=== PATIENT | female | born 1985 | race Asian ===

== ENCOUNTER 2018-01-30 00:35 | Inpatient (IN) | payer MEDICAID ==
[2018-01-30] MEDS: LACTATED RINGER'S 1,000 ML IV ×7 (01:35→21:09)
[2018-01-30 02:39] LABS: RUPTURE FETAL MEMBRANES POSITIVE (NEGATIVE)
[2018-01-30 02:46] LABS: ADD UMIC YES; UR ASCORBIC ACID NEGATIVE (NEGATIVE); UR BACTERIA FEW /HPF (NONE SEEN); UR BILIRUBIN (Dip) NEGATIVE (NEGATIVE); UR BLOOD (Dip) 2+ mg/dL (NEGATIVE); UR CLARITY CLEAR (CLEAR); UR COLOR COLORLESS (YELLOW); UR GLUCOSE (Dip) NEGATIVE (NEGATIVE); UR KETONES (Dip) NEGATIVE (NEGATIVE); UR LEUKOCYTE ESTERASE (Dip) TRACE Leu/ul (NEGATIVE); UR NITRITE (Dip) NEGATIVE (NEGATIVE); UR RBC 2 /HPF (0-5); UR SPECIFIC GRAVITY (Dip) 1.005 (1.003-1.030); UR TOTAL PROTEIN (Dip) NEGATIVE (NEGATIVE); UR UROBILINOGEN (Dip) NEGATIVE (NEGATIVE); UR WBC 2 /HPF (0-5)
[2018-01-30 02:58] LABS: AMPHETAMINE/METHAMPHETAMINE Negative (NEGATIVE); BARBITURATES Negative (NEGATIVE); BENZODIAZEPINES Negative (NEGATIVE); CANNABINOIDS Negative (NEGATIVE); COCAINE Negative (NEGATIVE); OPIATES Negative (NEGATIVE)
[2018-01-30] MEDS ORDERED: LACTATED RINGER'S 1,000 ML IV ×2 (03:03)
[2018-01-30] MEDS ORDERED: AMPICILLIN 2 GM/NS (PMX) 100 ML (03:25)
[2018-01-30] MEDS ORDERED: OXYTOCIN 30 UNITS/LR 500 ML IV ×3 (03:30→15:30)
[2018-01-30] MEDS ORDERED: LIDOCAINE 1% (MPF) 30 ML INJ INJ (03:30)
[2018-01-30] MEDS ORDERED: MISOPROSTOL 200 MCG TAB PR ×2 (03:30→15:30)
[2018-01-30] MEDS ORDERED: CARBOPROST 250 MCG INJ IM ×2 (03:30→15:30)
[2018-01-30] MEDS: AMPICILLIN 2 GM/NS (PMX) 100 ML IV (03:33)
[2018-01-30 03:41] LABS: ADD MAN DIFF? NO
[2018-01-30 03:43] LABS: BASOPHILS % 0.2 % (0.0-2.0); EOSINOPHILS # 0.1 10^3/ul (0.0-0.5); EOSINOPHILS % 0.5 % (0.0-7.0); HEMATOCRIT 34.7 % (37.0-47.0); HEMOGLOBIN 12.3 g/dl (12.0-16.0); LYMPHOCYTES # 1.5 10^3/ul (0.8-2.9); LYMPHOCYTES % 15.3 % (15.0-51.0); MEAN CORPUSCULAR HEMOGLOBIN 34.8 pg (29.0-33.0); MEAN CORPUSCULAR HGB CONC 35.4 g/dl (32.0-37.0); MEAN CORPUSCULAR VOLUME 98.3 fl (82.0-101.0); MEAN PLATELET VOLUME 10.3 fl (7.4-10.4); MONOCYTE # 0.9 10^3/ul (0.3-0.9); MONOCYTES % 9.3 % (0.0-11.0); NEUTROPHIL # 7.5 10^3/ul (1.6-7.5); NEUTROPHILS % 74.3 % (39.0-77.0); PLATELET COUNT 234 10^3/UL (140-415); RED BLOOD COUNT 3.53 10^6/ul (4.20-5.40); RED CELL DISTRIBUTION WIDTH 12.6 % (11.5-14.5)
[2018-01-30 03:43] LABS: WHITE BLOOD COUNT 10.1 10^3/ul (4.8-10.8)
[2018-01-30 03:47] LABS: INR 0.88; PT RATIO 0.9
[2018-01-30 03:48] LABS: PARTIAL THROMBOPLASTIN TIME 28.6 Sec (25.0-35.0)
[2018-01-30] MEDS: BETAMET NA PHOS/AC(6 MG/ML) 5ML INJ IM (03:55)
[2018-01-30 04:33] LABS: HEPATITIS B SURFACE ANTIGEN NEGATIVE (NEGATIVE)
[2018-01-30] MEDS: AMPICILLIN 1 GM/NS (PMX) 50 ML IV ×3 (07:45→15:30)
[2018-01-30] MEDS ORDERED: FENTAnyl 2MCG/ML-ROPIV 0.2% 100 ML (13:14)
[2018-01-30] MEDS ORDERED: FENTAnyl 2MCG/ML-ROPIV 0.2% 100 ML BAG EPI (15:00)
[2018-01-30] MEDS ORDERED: NALOXONE (0.4 MG/ML) INJ IV (15:00)
[2018-01-30] MEDS ORDERED: ONDANSETRON 4 MG INJ IV ×2 (15:00→15:30)
[2018-01-30] MEDS ORDERED: DIPHENHYDRAMINE 50 MG INJ IV (15:00)
[2018-01-30] MEDS: METHYLERGONOVINE 0.2 MG INJ IM (15:09)
[2018-01-30] MEDS: OXYTOCIN 30 UNITS/LR 500 ML IV ×2 (15:13→15:38)
[2018-01-30] MEDS ORDERED: SENNA/DOCUSATE NA (8.6MG/50MG) TAB PO (15:30)
[2018-01-30] MEDS ORDERED: ACETAMINOPHEN 325 MG TAB PO (15:30)
[2018-01-30] MEDS ORDERED: METHYLERGONOVINE 0.2 MG INJ IM (15:30)
[2018-01-30] MEDS ORDERED: OXYCODONE/ASPIRIN (4.88/325) TAB PO ×2 (15:30)
[2018-01-30] MEDS ORDERED: DIPHENHYDRAMINE 25 MG CAP PO (15:30)
[2018-01-30] MEDS ORDERED: DIBUCAINE 1% 30 GM OINT PR (15:30)
[2018-01-30] MEDS: IBUPROFEN 600 MG TAB PO ×2 (18:21→23:48)
[2018-01-30] MEDS: BENZOCAINE 20% 56 ML SPRAY TOP (18:21)
[2018-01-30] MEDS: WITCH HAZEL/GLYCERIN PAD PR (18:21)
[2018-01-30] MEDS: LANOLIN 7 GM TUBE TOP (18:21)
[2018-01-30] MEDS: SENNA/DOCUSATE NA (8.6MG/50MG) TAB PO (21:09)
[2018-01-30] MEDS: MAGNESIUM HYDROXIDE 30ML CUP PO (21:09)
[2018-01-30 21:42] LABS: RAPID PLASMA REAGIN NONREACTIVE (NR)
[2018-01-31] MEDS: LACTATED RINGER'S 1,000 ML IV ×3 (05:00→21:00)
[2018-01-31] MEDS: IBUPROFEN 600 MG TAB PO ×3 (05:31→18:11)
[2018-01-31 09:49] LABS: ADD MAN DIFF? NO
[2018-01-31 09:57] LABS: WHITE BLOOD COUNT 17.1 10^3/ul (4.8-10.8)
[2018-01-31 09:57] LABS: BASOPHILS % 0.2 % (0.0-2.0); EOSINOPHILS % 0.1 % (0.0-7.0); HEMATOCRIT 31.1 % (37.0-47.0); HEMOGLOBIN 10.8 g/dl (12.0-16.0); LYMPHOCYTES # 2.4 10^3/ul (0.8-2.9); MEAN CORPUSCULAR HEMOGLOBIN 34.7 pg (29.0-33.0); MEAN CORPUSCULAR HGB CONC 34.7 g/dl (32.0-37.0); MEAN PLATELET VOLUME 10.2 fl (7.4-10.4); MONOCYTE # 1.2 10^3/ul (0.3-0.9); MONOCYTES % 6.9 % (0.0-11.0); NEUTROPHIL # 13.4 10^3/ul (1.6-7.5); NEUTROPHILS % 78.3 % (39.0-77.0); PLATELET COUNT 224 10^3/UL (140-415); RED BLOOD COUNT 3.11 10^6/ul (4.20-5.40)
[2018-01-31] MEDS: MAGNESIUM HYDROXIDE 30ML CUP PO ×2 (11:14→21:00)
[2018-01-31] MEDS: SENNA/DOCUSATE NA (8.6MG/50MG) TAB PO ×2 (11:15→21:00)
[2018-02-01] MEDS: LACTATED RINGER'S 1,000 ML IV (05:00)
[2018-02-01] MEDS: IBUPROFEN 600 MG TAB PO ×4 (06:00→18:00)
[2018-02-01] MEDS: SENNA/DOCUSATE NA (8.6MG/50MG) TAB PO (09:00)
[2018-02-01] MEDS: MAGNESIUM HYDROXIDE 30ML CUP PO (09:00)
[2018-02-01] MEDS ORDERED: INFLUENZA VIRUS VACCINE 0.5 ML (DISPENSING) IM* (09:00)
[2018-02-01] MEDS: WITCH HAZEL/GLYCERIN PAD PR (13:12)
[2018-02-01] MEDS: BENZOCAINE 20% 56 ML SPRAY TOP (13:12)
== END 2018-02-01 18:30 | disposition home or self-care (01) | DRG 775 ==
LOC: OBT 00:35 → L-D 00:35 → OBT 03:00 → L-D 03:00 → PP1 17:17
PROC: 10E0XZZ Delivery of Products of Conception, External Approach (ICD-10-PCS; principal; 2018-01-30)
PROC: 0W8NXZZ Division of Female Perineum, External Approach (ICD-10-PCS; 2018-01-30)
PROC: 4A1HXCZ Monitoring of Products of Conception, Cardiac Rate, External Approach (ICD-10-PCS; 2018-01-30)
DX: O42.013 Preterm premature rupture of membranes, onset of labor within 24 hours of rupture, third trimester (principal); Z37.0 Single live birth; Z3A.35 35 weeks gestation of pregnancy
CPT/HCPCS: 36415; 62319; 76815; 76817; 76818; 80307; 81001; 84112; 85025; 85610; 85730; 86592; 86850; 86900; 86901; 87070; 87086; 87340; 96360; 96361; 99464